=== PATIENT | female | born 1955 | race Caucasian/White ===

== ENCOUNTER → 2023-08-01 | Day surgery (SDC) | payer MEDICARE ==
[2023-07-28 16:24] VITALS: BMI 23.2
[~2023-08-01] MED LIST: LIDOCAINE 1% INJ 10MG/ML (20 ML MDV) ONE; PROPOFOL 10 MG/ML 20 ML VIAL IV ONE
[2023-08-01] MEDS: LACTATED RINGERS 1,000 ML IV SCH (06:41)
[2023-08-01 07:14] VITALS: TEMP 97
--- NOTE | 2023-08-01 07:34 | P.PCN ---
Date of Procedure: 08/01/23 Procedure(s) Performed: Brief history: Patient is a alfreda send 60-year-old pleasant white female scheduled for an elective upper endoscopy as well as colonoscopy as a part of evaluation of send history of GERD, intermittent nausea vomiting and change in bowel habits for the last several months duration. She lost 20 pounds since October of last year. Presently on Prevacid 30 mg twice daily with some improvement. Procedure performed: Esophagogastroduodenoscopy with biopsy Colonoscopy with snare polypectomy with snare polypectomy Preoperative diagnosis: History of GERD Abdominal pain and change in bowel habits Progressive weight loss Anesthesia: MAC Procedure: After informed consent was obtained from the patient was brought into the endoscopy unit and IV sedation was administered by anesthesia under continuous monitoring. Initially upper endoscopy was done. The Olympus GF 160 video endoscope was inserted inserted into the mouth and esophagus intubated without any difficulty and was gradually advanced into the stomach and duodenum and carefully examined. The bulb and second part of the duodenum appeared normal. Biopsies were done from the duodenum to evaluate for celiac disease. The scope was then withdrawn into the stomach adequately insufflated with air and upon careful examination the antrum and medicated gastritis and biopsies were done from this area. There were multiple gastric polyps noted in the gastric body which were biopsied. Mucosa of the body, cardia and fundus appeared normal. The scope was then withdrawn into the esophagus. The GE junction was located at 40 cm to the incisors. Small hiatal hernia noted. It appeared regular with no erythema erosions or ulcerations. Rest of the esophagus appeared normal. Patient tolerated the procedure well. At this time the patient continued to remain sedation. Initial digital rectal examination was normal. Olympus CF 160 video colonoscope was then inserted into the rectum and gradually advanced to the cecum without any difficulty. Careful examination was performed as the scope was gradually being withdrawn. The prep was excellent. The cecum, the normal-appearing descending colon there was a 1 cm flat polyp removed by snare polypectomy. Rest of the ascending colon, transverse colon, appeared normal. In the descending colon at 70 cm from anal verge there was a 2 cm broad-based polyp that was removed by piecemeal snare polypectomy and cautery polypectomy accomplished. Rest of the descending colon, sigmoid colon and rectum appeared normal. Scattered sigmoid diverticulosis. Retroflexion was performed in the rectum and no lesions were noted. Patient tolerated the procedure well. Impression: 1. Upper endoscopy revealed mild gastritis, multiple gastric polyps and small hiatal hernia 2. Colonoscopy revealed: a) 1 cm flat ascending colon polyp status post snare polypectomy b) 2 cm broad-based descending colon polyp s/p snare polypectomy c) scattered sigmoid diverticulosis Recommendations: Findings of this examination were discussed with the patient as well as her family. She was advised to follow-up with the biopsy results. Continue with Prevacid 30 mg twice daily and follow antireflux measures. If the biopsy of the colon polyps reveals adenoma, recommended repeat colonoscopy in 3 years.
[2023-08-01 08:46] VITALS: BP 104/67; PULSE 69; RESP 14
== END ==
LOC: ORWHC2ENDO 06:15
PROVIDERS: ATTEND Internal Medicine Gastroenterology
DX: K31.7 Polyp of stomach and duodenum (principal); K44.9 Diaphragmatic hernia without obstruction or gangrene; K57.30 Diverticulosis of large intestine without perforation or abscess without bleeding; K21.9 Gastro-esophageal reflux disease without esophagitis; D12.4 Benign neoplasm of descending colon; D12.2 Benign neoplasm of ascending colon; E07.9 Disorder of thyroid, unspecified; F12.90 Cannabis use, unspecified, uncomplicated; Z79.890 Hormone replacement therapy; Z79.899 Other long term (current) drug therapy; Z88.0 Allergy status to penicillin; Z88.8 Allergy status to other drugs, medicaments and biological substances
CPT/HCPCS: 88305; 45385; 43239; J2001; J2704